=== PATIENT | male | born 1965 | race Two or more races ===

== ENCOUNTER → 2018-10-20 | Emergency (ER) | payer MEDICAID ==
[~2018-10-20] VITALS: Ht 188 cm; Wt 100.0 kg
[~2018-10-20] MED LIST: ACETAMINOPHEN 500 MG TABLET PO ONE
[2018-10-20 13:15] VITALS: BP 127/74
== END | disposition home or self-care (01) ==
LOC: EMS 13:11
DX: S16.1XXA Strain of muscle, fascia and tendon at neck level, initial encounter (principal); V43.52XA Car driver injured in collision with other type car in traffic accident, initial encounter; Y93.89 Activity, other specified; Y92.488 Other paved roadways as the place of occurrence of the external cause; Y99.8 Other external cause status

== ENCOUNTER 2018-10-26 12:07 | Emergency (ER) | payer MEDICAID ==
[~2018-10-26] VITALS: Ht 185.4 cm; Wt 100.0 kg
[2018-10-26 12:12] VITALS: BP 149/107
[2018-10-26] MEDS ORDERED: METHOCARBAMOL 500 MG TABLET PO ONE (15:00)
[2018-10-26] MEDS ORDERED: KETOROLAC TROMETHAMINE 60 MG/2 ML VIAL IM ONE (15:00)
[2018-10-26] MEDS ORDERED: KETOROLAC TROMETHAMINE 10 MG TABLET ONE (15:28)
[2018-10-26] MEDS ORDERED: KETOROLAC TROMETHAMINE 10 MG TABLET PO ONE (15:30)
== END 2018-10-26 16:25 | disposition home or self-care (01) ==
LOC: EMS 12:08
DX: S13.9XXA Sprain of joints and ligaments of unspecified parts of neck, initial encounter (principal); M54.5 Low back pain; M54.6 Pain in thoracic spine; V49.9XXA Car occupant (driver) (passenger) injured in unspecified traffic accident, initial encounter; Y93.89 Activity, other specified; Y92.89 Other specified places as the place of occurrence of the external cause; Y99.8 Other external cause status